=== PATIENT | male | born 1965 | race Caucasian/White ===

== ENCOUNTER 2017-01-23 21:18 | Emergency (ER) | payer SELFPAY ==
[2017-01-23 21:31] VITALS: BP 109/86
--- NOTE | 2017-01-23 21:51 | UC ---
Upper Extremity HPI - HPI Summary HPI Summary: per nurses triage: LUMP RIGHT WRIST X 3 MOS, WRIST NOW HAS RADIATING PAIN, NUMBNESS AND ROM PAIN. 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 - History of Current Complaint Chief Complaint: UCUpperExtremity Stated Complaint: RIGHT WRIST PAIN Time Seen by Provider: 01/23/17 21:43 Hx Obtained From: Patient ?: No Onset/Duration: Gradual Onset, Lasting Weeks Severity Initially: Mild Severity Currently: Moderate Location Of Pain: Is Discrete @ - posterior aspect of right wrist Character: Dull, Stiffness Aggravating Factor(s): Movement Alleviating Factor(s): Nothing Associated Signs And Symptoms: Positive: Negative - Allergies/Home Medications Allergies/Adverse Reactions: Allergies Allergy/AdvReac Type Severity Reaction Status Date / Time Bee Venom Allergy Rash and Verified 01/23/17 21:32 Difficulty Breathing Penicillins Allergy "Real high Verified 01/23/17 21:32 fever" PMH/Surg Hx/FS Hx/Imm Hx Previously Healthy: Yes - Surgical History Surgical History: Yes Surgery Procedure, Year, and Place: Two lumbar vertebrae "tilted and fused" - Family History Known Family History: Positive: Hypertension - Social History Alcohol Use: Occasionally Substance Use Type: None Smoking Status (MU): Former Smoker Type: Cigarettes, Smokeless Tobacco Amount Used/How Often: 2 - 2 1/2 PPD Length of Time of Smoking/Using Tobacco: 26 Years Have You Smoked in the Last Year: Yes Household Exposure Type: Cigarettes Review of Systems Constitutional: Negative Skin: Negative Eyes: Negative ENT: Negative Respiratory: Negative Cardiovascular: Negative Gastrointestinal: Negative Genitourinary: Negative Motor: Negative Neurovascular: Negative Musculoskeletal: Arthralgia, Edema Neurological: Negative Psychological: Negative Is Patient Immunocompromised?: No All Other Systems Reviewed And Are Negative: Yes Physical Exam Triage Information Reviewed: Yes Appearance: Well-Appearing, Well-Nourished, Pain Distress Vital Signs: Initial Vital Signs Temp 98.1 F 01/23/17 21:24 Pulse 103 01/23/17 21:24 Resp 20 01/23/17 21:24 BP 109/86 01/23/17 21:24 Pulse Ox 97 01/23/17 21:24 Vital Signs Reviewed: Yes Eye Exam: Normal ENT Exam: Normal Dental Exam: Normal Neck exam: Normal Respiratory Exam: Normal Respiratory: Positive: Chest non-tender, Lungs clear, Normal breath sounds Cardiovascular Exam: Normal Cardiovascular: Positive: RRR, No Murmur, Pulses Normal Abdominal Exam: Normal Abdomen Description: Positive: Nontender, No Organomegaly, Soft Bowel Sounds: Positive: Present Neurological Exam: Normal Psychological Exam: Normal Skin Exam: Normal Upper Extremity Course/Dx - Course Course Of Treatment: hx obtained, exam performed ,meds reviewed, receommend follow up with ortho for cyst - Differential Dx/Diagnosis Differential Diagnosis/HQI/PQRI: Contusion, Fracture (Open), Strain, Sprain Provider Diagnoses: ganglion cyst of the right wrist Discharge - Discharge Plan Condition: Stable Disposition: HOME Referrals: No Primary Care Phys,NOPCP [Medical Doctor] - Sonali Diaz MD [Medical Doctor] - Additional Instructions: 1. rest the wrist as much as possible 2. Take the medication as prescribed, do not use other ibuprofen product or aleve 3. warm water soaks may help 4. Follow up with Dr Diaz if pain is symptoms are not managed with medication and rest.
== END 2017-01-23 22:18 | disposition home or self-care (01) ==
LOC: UCCORT 21:18
DX: M67.431 Ganglion, right wrist (principal); Z88.0 Allergy status to penicillin; Z91.030 Bee allergy status; Z87.891 Personal history of nicotine dependence
CPT/HCPCS: 99213; G0463

== ENCOUNTER 2017-03-14 18:01 | Emergency (ER) | payer BC, OTHER ==
[2017-03-14 19:39] VITALS: BP 108/76
[2017-03-14] MEDS ORDERED: Acetaminophen TAB* 325 MG PO ONE (19:49)
--- NOTE | 2017-03-14 19:57 | RAD ---
HISTORY: Cough COMPARISONS: January 21, 2015 VIEWS: 4: Frontal dual-energy and lateral views of the chest. FINDINGS: CARDIOMEDIASTINAL SILHOUETTE: The cardiomediastinal silhouette is normal. ANN MARIE: The ann marie are normal. PLEURA: The costophrenic angles are sharp. No pleural abnormalities are noted. LUNG PARENCHYMA: The lungs are clear. ABDOMEN: The upper abdomen is clear. There is no subphrenic gas. BONES AND SOFT TISSUES: No bone or soft tissue abnormalities are noted. OTHER: None. IMPRESSION: NO ACTIVE CARDIOPULMONARY DISEASE.
--- NOTE | 2017-03-14 20:13 | UC ---
FLU HPI - HPI Summary HPI Summary: Pt c/o sudden onset of fever, chills, mid back pain, cough and generalized malaise and fatigue. Has history of pneumonia with hospitalization. - History of Current Complaint Chief Complaint: UCGeneralIllness Stated Complaint: VOMITING,BACK PAIN Time Seen by Provider: 03/14/17 19:03 Hx Obtained From: Patient Onset/Duration: Sudden Onset, Lasting Days Severity Currently: Moderate Severity Initially: Mild Associated Signs & Symptoms: Positive: Fever, Myalgia, Cough Related Hx: Possible Flu/Infectious Exposure - Allergy/Home Medications Allergies/Adverse Reactions: Allergies Allergy/AdvReac Type Severity Reaction Status Date / Time Bee Venom Allergy Rash and Verified 03/14/17 19:38 Difficulty Breathing Penicillins Allergy "Real high Verified 03/14/17 19:38 fever" PMH/Surg Hx/FS Hx/Imm Hx Previously Healthy: Yes Respiratory History: Pneumonia - Surgical History Surgical History: Yes Surgery Procedure, Year, and Place: Two lumbar vertebrae "tilted and fused" - Family History Known Family History: Positive: Hypertension - Social History Lives: With Family Alcohol Use: Occasionally Substance Use Type: None Smoking Status (MU): Former Smoker Type: Cigarettes, Smokeless Tobacco Amount Used/How Often: 2 - 2 1/2 PPD Length of Time of Smoking/Using Tobacco: 26 Years Have You Smoked in the Last Year: Yes Household Exposure Type: Cigarettes - Immunization History Most Recent Influenza Vaccination: not current Review of Systems Constitutional: Fever, Chills, Fatigue Skin: Negative Eyes: Negative ENT: Negative Respiratory: Cough Cardiovascular: Negative Gastrointestinal: Negative Genitourinary: Negative Motor: Negative Neurovascular: Negative Musculoskeletal: Myalgia Neurological: Negative Psychological: Negative Is Patient Immunocompromised?: No All Other Systems Reviewed And Are Negative: Yes Physical Exam Triage Information Reviewed: Yes Appearance: Ill-Appearing Vital Signs: Initial Vital Signs Temp 102.0 F 03/14/17 19:28 Pulse 115 03/14/17 19:28 Resp 18 03/14/17 19:28 BP 108/76 03/14/17 19:28 Pulse Ox 96 03/14/17 19:28 Vital Signs Reviewed: Yes Eye Exam: Normal ENT Exam: Normal Dental Exam: Normal Neck exam: Normal Respiratory Exam: Normal Cardiovascular Exam: Other Cardiovascular: Positive: RRR, Tachycardia Musculoskeletal Exam: Normal Neurological Exam: Normal Psychological Exam: Normal Skin Exam: Normal Flu Course/Dx - Differential Dx/Diagnosis Differential Diagnosis/HQI/PQRI: Influenza, Pneumonia, Other - fever unknown origin Provider Diagnoses: Bronchitis Discharge - Discharge Plan Condition: Stable Disposition: HOME Prescriptions: Azithromycin TAB* [Zithromax TAB (Z-PRANEETH) 250 mg #6 tabs] 2 tab PO .TODAY, THEN 1 DAILY #1 praneeth Patient Education Materials: Fever in Adults (ED), Acute Bronchitis (ED) Referrals: Catherine Gan MD [Primary Care Provider] - If Needed
== END 2017-03-14 20:26 | disposition home or self-care (01) ==
LOC: UCCORT 18:01
DX: J40 Bronchitis, not specified as acute or chronic (principal); R05 Cough; Z88.0 Allergy status to penicillin; Z87.891 Personal history of nicotine dependence; R00.0 Tachycardia, unspecified
CPT/HCPCS: 71046; 87502; 99212; A9270-GY; G0463